=== PATIENT | female | born 1975 | race Caucasian/White ===

== ENCOUNTER → 2016-07-02 | Outpatient (CLI) | payer OTHER ==
[~2016-07-02] VITALS: Ht 170.2 cm; Wt 116.6 kg
[~2016-07-02] MED LIST: BIOTIN800 MCG PO; MOTRIN 600600 MG/TAB PO; MULTIPLE VITAMI1 TA1 PO; RT ADVAIR 228 DISKUS IH; VENTOLIN0.09 MG IH; VITAMIN B COMPL1 T16 PO; ZYRTEC 10MG10 MG PO
[2016-07-02 15:48] VITALS: BP 130/80; PULSE 84
[2016-07-02 16:07] VITALS: BP 130/80; PULSE 84
== END ==
LOC: LIGHT 09:08
DX: E78.4 Other hyperlipidemia (principal); J45.998 Other asthma; E66.01 Morbid (severe) obesity due to excess calories; Z68.41 Body mass index [BMI] 40.0-44.9, adult

== ENCOUNTER 2016-08-07 14:48 | Inpatient (IN) | payer OTHER ==
[~2016-08-07] VITALS: Ht 170.2 cm; Wt 118.5 kg
[~2016-08-07 14:48] MED LIST changes: -BIOTIN800 MCG PO
[2016-08-28] VITALS (11 sets, daily range): BP systolic 120–153; BP diastolic 76–92; PULSE 63–88; TEMP 97.5–98.6
[2016-08-29 01:10] VITALS: BP 144/79; PULSE 80; TEMP 98.3
[2016-08-29 04:53] VITALS: BP 123/75; PULSE 84; TEMP 98
[2016-08-29 10:16] VITALS: BP 86/36; PULSE 62; TEMP 98
[2016-08-29 13:36] VITALS: BP 110/65; PULSE 91; TEMP 97.9
[2016-08-29 17:04] VITALS: BP 106/63; PULSE 73; TEMP 97.9
[2016-09-10] MEDS ORDERED: BIOTIN800 MCG PO (15:45)
== END 2016-08-29 19:25 | disposition home or self-care (01) | DRG 621 ==
LOC: SURG 08-28 10:03 → INPTSU 08-28 10:09 → SURG 08-28 12:00
PROVIDERS: Surgery
PROC: 0DB64Z3 Excision of Stomach, Percutaneous Endoscopic Approach, Vertical (ICD-10-PCS; principal; 2016-08-28 12:00)
DX: E66.01 Morbid (severe) obesity due to excess calories (principal); Z68.41 Body mass index [BMI] 40.0-44.9, adult
CPT/HCPCS: A9284; J0690; J1170; J1885; J2405; J2550; J2704; J2765; J3010; J7120; Q9968

== ENCOUNTER → 2016-08-14 | Outpatient (CLI) | payer OTHER ==
[~2016-08-14] MED LIST changes: +BIOTIN800 MCG PO
== END ==
LOC: LIGHT 07:50
DX: Z53.9 Procedure and treatment not carried out, unspecified reason (principal)

== ENCOUNTER → 2016-09-10 | Outpatient (CLI) | payer OTHER ==
[~2016-09-10] VITALS: Ht 170.2 cm; Wt 104.6 kg
[2016-09-10 15:46] VITALS: BP 135/82; PULSE 110
== END ==
LOC: LIGHT 15:07
DX: E78.4 Other hyperlipidemia (principal); J45.998 Other asthma; E66.8 Other obesity; Z68.35 Body mass index [BMI] 35.0-35.9, adult; M72.2 Plantar fascial fibromatosis

== ENCOUNTER → 2016-10-22 | Outpatient (CLI) | payer OTHER ==
[~2016-10-22] VITALS: Ht 170.2 cm; Wt 103.0 kg
[2016-10-22 14:15] VITALS: BP 108/73; PULSE 90
== END ==
LOC: LIGHT 14:15
DX: Z02.89 Encounter for other administrative examinations (principal)

== ENCOUNTER → 2016-11-19 | Outpatient (CLI) | payer OTHER ==
[~2016-11-19] VITALS: Ht 170.2 cm; Wt 91.4 kg
[2016-11-19 15:41] VITALS: BP 121/69; PULSE 81
[2017-02-18 16:10] VITALS: BP 108/80; PULSE 60
== END ==
LOC: LIGHT 11:48
DX: Z02.89 Encounter for other administrative examinations (principal)

== ENCOUNTER → 2017-02-25 | Outpatient (CLI) | payer OTHER ==
[~2017-02-25] VITALS: Ht 170.2 cm; Wt 89.8 kg
[2017-02-25 16:00] VITALS: BP 120/70; PULSE 84
== END ==
LOC: LIGHT 10:43
DX: E78.5 Hyperlipidemia, unspecified (principal); J45.909 Unspecified asthma, uncomplicated; E66.9 Obesity, unspecified; Z68.31 Body mass index [BMI] 31.0-31.9, adult; Z71.3 Dietary counseling and surveillance; M72.2 Plantar fascial fibromatosis

== ENCOUNTER → 2017-09-09 | Outpatient (CLI) | payer OTHER ==
[~2017-09-09] VITALS: Ht 170.2 cm; Wt 88.7 kg
[2017-09-09 15:52] VITALS: BP 92/60; PULSE 80
== END ==
LOC: LIGHT 08-26 08:58
DX: E78.5 Hyperlipidemia, unspecified (principal); J45.909 Unspecified asthma, uncomplicated; E66.9 Obesity, unspecified; Z68.30 Body mass index [BMI] 30.0-30.9, adult; Z71.3 Dietary counseling and surveillance; Z98.84 Bariatric surgery status
CPT/HCPCS: G0463